=== PATIENT | female | born 1945 | race Caucasian/White ===

== ENCOUNTER 2017-10-08 21:30 | Emergency (ER) | payer MEDICARE ==
[~2017-10-08] VITALS: Ht 170.2 cm; Wt 83.9 kg
[~2017-10-08 21:30] MED LIST: ATEN25 PO; Dyazide 37.5-21 EACH PO; LISI20 PO
[2017-10-08] MEDS ORDERED: ALEN70 PO (22:08)
[2017-10-08] MEDS ORDERED: LOSA50 PO (22:08)
[2017-10-08] MEDS ORDERED: Simvastatin20 MG PO (22:08)
[2017-10-08 22:40] LABS: Influenza A Negative (NEGATIVE); Influenza B Negative (NEGATIVE)
[2017-10-08 23:06] LABS: BASOPHILS ABSOLUTE AUTO 0.06 K/mm3 (0.00-0.23); BASOPHILS PERCENT AUTO 1 % (0-2); EOSINOPHILS ABSOLUTE AUTO 0.19 K/mm3 (0.00-0.68); EOSINOPHILS PERCENT AUTO 3 % (0-6); Hematocrit 39.7 % (33.0-51.0); Hemoglobin 12.6 g/dL (11.5-16.0); IMMATURE GRAN ABSOLUTE AUTO 0.01 K/mm3 (0.00-0.10); IMMATURE GRAN PERCENT AUTO 0 % (0-1); LYMPHOCYTES ABSOLUTE AUTO 1.45 K/mm3 (0.84-5.20); LYMPHOCYTES PERCENT AUTO 20 % (21-46); MONOCYTES ABSOLUTE AUTO 0.81 K/mm3 (0.16-1.47); MONOCYTES PERCENT AUTO 11 % (4-13); Mean Corpuscular HGB 29.6 pg (26.0-34.0); Mean Corpuscular HGB Conc 31.7 g/dL (31.5-36.5); Mean Corpuscular Volume 93 fL (80-100); Mean Platelet Volume 8.9 fL (9.1-12.4); NEUTROPHILS ABSOLUTE AUTO 4.89 K/mm3 (1.96-9.15); NEUTROPHILS PERCENT AUTO 66 % (41-73); Platelet Count 237 K/mm3 (150-400); RDW Standard Deviation 41.2 fL (35.1-46.3); Red Blood Cell Count 4.25 M/mm3 (3.80-5.20); White Blood Cell Count 7.41 K/mm3 (4.00-11.30)
[2017-10-08 23:27] LABS: Albumin, Blood 3.6 g/dL (3.4-5.0); Albumin/Globulin Ratio 0.9 (0.8-1.8); Bilirubin, Total 0.5 mg/dL (0.1-1.0); Bun/Creatinine Ratio 13.5 (12.0-20.0); Calcium, Blood 8.8 mg/dL (8.5-10.1); Creatinine, Blood 1.33 mg/dL (0.40-1.00); Globulin, Blood 4.2 g/dL (2.2-4.0); Potassium, Blood 3.8 mmol/L (3.5-5.5); Total Protein, Blood 7.8 g/dL (6.4-8.2)
[2017-10-08] MEDS ORDERED: Tylenol325 MG PO (23:56)
== END 2017-10-09 00:43 | disposition home or self-care (01) ==
LOC: ER 21:30
PROVIDERS: Emergency Medicine
DX: R50.9 Fever, unspecified (principal); I10 Essential (primary) hypertension; Z90.710 Acquired absence of both cervix and uterus; Z90.49 Acquired absence of other specified parts of digestive tract; Z87.891 Personal history of nicotine dependence
CPT/HCPCS: 36415; 71046; 80053; 85025; 87804; 93005; 93010; 96361; 96374; 96375; 99284; J1200; J1885; J2765; J7030

== ENCOUNTER → 2019-01-01 | Outpatient (CLI) | payer MEDICARE ==
[~2019-01-01] MED LIST changes: +ALEN70 PO; +LOSA50 PO; +Simvastatin20 MG PO; +Tylenol325 MG PO
== END | disposition home or self-care (01) ==
LOC: LAB SHORT 14:40 → LAB 14:40
DX: R11.0 Nausea (principal); R30.0 Dysuria
CPT/HCPCS: 87086

== ENCOUNTER 2019-06-22 09:18 | Observation (INO) | payer MEDICARE ==
[~2019-06-22] VITALS: Ht 167.6 cm; Wt 87.1 kg
[2019-06-22] MEDS ORDERED: Aspirin EC81 MG PO (09:40)
[2019-06-22] MEDS ORDERED: VITAMIN D31000 UNI2 PO (09:41)
[2019-06-22 09:52] LABS: BASOPHILS ABSOLUTE AUTO 0.06 K/mm3 (0.00-0.23); BASOPHILS PERCENT AUTO 1 % (0-2); EOSINOPHILS ABSOLUTE AUTO 0.25 K/mm3 (0.00-0.68); EOSINOPHILS PERCENT AUTO 4 % (0-6); Hematocrit 40.4 % (33.0-51.0); Hemoglobin 13.1 g/dL (11.5-16.0); IMMATURE GRAN ABSOLUTE AUTO 0.02 K/mm3 (0.00-0.10); IMMATURE GRAN PERCENT AUTO 0 % (0-1); LYMPHOCYTES ABSOLUTE AUTO 1.65 K/mm3 (0.84-5.20); LYMPHOCYTES PERCENT AUTO 25 % (21-46); MONOCYTES ABSOLUTE AUTO 0.69 K/mm3 (0.16-1.47); MONOCYTES PERCENT AUTO 10 % (4-13); Mean Corpuscular HGB 30.5 pg (26.0-34.0); Mean Corpuscular HGB Conc 32.4 g/dL (31.5-36.5); Mean Corpuscular Volume 94 fL (80-100); Mean Platelet Volume 8.7 fL (9.1-12.4); NEUTROPHILS ABSOLUTE AUTO 3.94 K/mm3 (1.96-9.15); NEUTROPHILS PERCENT AUTO 60 % (41-73); Platelet Count 276 K/mm3 (150-400); RDW Coefficient Variation 12.5 % (11.7-14.2); RDW Standard Deviation 43.3 fL (35.1-46.3); Red Blood Cell Count 4.29 M/mm3 (3.80-5.20); White Blood Cell Count 6.61 K/mm3 (4.00-11.30)
[2019-06-22 09:59] LABS: Source, Urine Clean Catch
[2019-06-22 10:09] LABS: Appearance, Urine Clear (Clear); Bilirubin, Urine Neg (Neg); Blood, Urine Neg (Neg); Glucose Qualitative, Urine Neg (Neg); Ketones, Urine Neg (Neg); Leukocyte Esterase, Urine 1+ (Neg); Nitrite, Urine Neg (Neg); Protein, Urine Neg (Neg); Urobilinogen, Urine NORM (Normal); pH, Urine 6.5 (5.0-8.0)
[2019-06-22 10:10] LABS: Color, Urine Yellow (P-Yellow)
[2019-06-22 10:11] LABS: Alanine Aminotransfer (ALT/SGP 30 U/L (12-78); Albumin, Blood 3.6 g/dL (3.4-5.0); Albumin/Globulin Ratio 0.9 (0.8-1.8); Alk Phos 62 U/L (50-136); Anion Gap 7 mmol/L (6-16); Aspartate Aminotrans (AST/SGOT 24 U/L (12-37); Bilirubin, Total 0.8 mg/dL (0.1-1.0); Blood Urea Nitrogen 22 mg/dL (8-24); Bun/Creatinine Ratio 16.5 (12.0-20.0); CO2, Blood 24 mmol/L (21-32); Calcium, Blood 8.9 mg/dL (8.5-10.1); Chloride, Blood 107 mmol/L (98-108); Creatinine, Blood 1.33 mg/dL (0.40-1.00); Glomerular Filtration Rate 42 (60-); Glucose, Blood 104 mg/dL (70-99); Potassium, Blood 3.5 mmol/L (3.5-5.5); Sodium, Blood 138 mmol/L (136-145); Total Protein, Blood 7.6 g/dL (6.4-8.2); Troponin I <0.015 ng/mL (0.000-0.040)
[2019-06-22 10:16] LABS: Bacteria Not Seen /hpf; Red Blood Cells, Urine Not Seen /hpf (0-2); Squamous Epithelial Cells Few /hpf (Few); White Blood Cells, Urine Rare /hpf (0-5)
--- NOTE | 2019-06-22 12:58 | NUR ---
PT ARRIVED TO ROOM FROM ED VIA W/C. PT WAS ABLE TO WALK FROM W/C TO BED IND. PT IS A/O X 4 AND DENIES ANY PAIN OR DISCOMRT. SHE IS HAS NO S/S OF CARDIAC DISTRESS. PT WAS ORIENTED TO ROOM, CALL LIGHT AND NURSING STAFF. PT IS ABLE TO MAKE HER NEEDS KNOWN AND IS RESTING IN BED.
--- NOTE | 2019-06-22 17:38 | NUR ---
SHIFT SUMMARY: PT HAS BEEN PLEASANT AND COOPERATIVE WITH HER CARE AND RESTING IN BED/TALKING ON THE PHONE WITH FRIENDS AND FAMILY SINCE ADMISSION. PT IS SCHEDULED TO HAVE THE FIRST PART OF HER STRESS TEST IN THE MORNING BEFORE BREAKFAST PER NUCLEAR MEDICINE. PT SHOULD BE NPO AFTER MIDNIGHT TONIGHT TO PREP FOR THE TEST. PT IS INDEPENDENT IN HER ROOM. SHE HAS HAD NO LIGHTHEADEDNESS OR CHEST PAIN SINCE HER ARRIVAL. PT IS ABLE TO MAKE HER NEEDS KNOWN AND CALLS FOR HELP APPROPRIATELY.
--- NOTE | 2019-06-23 04:16 | NUR ---
SHIFT SUMMARY: 73 Y/O FEMALE RESTED COMFORTABLY IN BED ALL SHIFT, DENIES PAIN, NAUSEA, HAPPY AND COOPERATIVE, NPO SINCE MIDNIGHT FOR POSSIBLE STRESS TEST THIS AM, TELEMETRY REFLECTS SINUS BRADYCARDIA WITH HEART RATE 54 PER SHABANA KUMAR, BED LOW POSITION, CALL LIGHT AT SIDE.
--- NOTE | 2019-06-23 08:53 | NUR ---
PATIENT DID NOT EAT BREAKFAST THIS SHIFT DUE TO BEING NPO AT THIS TIME FOR A PROCEDURE.
--- NOTE | 2019-06-23 17:02 | NUR ---
SHIFT SUMMARY PATIENT A&O X4, INDEPENDENT IN ROOM. NPO THIS MORNING FOR STRESS TEST, DRANK COFFEE AND ATE MEAL AFTER NUC MED STAFF TOLD HER SHE COULD. ECHO AND STRESS TEST COMPLETED, DR BRAUN NOTIFIED AND CAME TO SPEAK TO PATIENT ABOUT RESULTS. DR BRAUN ORDERED CARDIOLOGY CONSULT, DR BUTCHER NOTIFIED OF PATIENT'S SITUATION, HE STATED HE WOULD SEE PATIENT. PATIENT DENIES PAIN, SOB, NAUSEA, OR FATIGUE TODAY. DAUGHTER IN ROOM MOST OF DAY. PT REQUESTING HOME SIMVASTATIN INSTEAD OF ORDERED LIPITOR BUT PHARMACY UNABLE TO VERIFY PT DOES NOT HAVE PRESCRIBED BOTTLE. DR BRAUN AWARE.
--- NOTE | 2019-06-24 04:20 | NUR ---
SHIFT SUMMARY PT HAD UNEVENTFUL EVENING. DENIED ANY CHEST PAIN OR DISCOMFORT. REPORTED ONE EPISODE OF NAUSEA BUT WAS ASLEEP WHEN GOING IN TO CHECK. TELEMETRY ON AND REMAINED SINUS RHYTHM IN THE 60'S THROUGHOUT THE NIGHT. PT HAS BEEN NPO SINCE 0000 IN PREPARATION FOR ANGIOGRAM TODAY. VITAL SIGNS STABLE. NO ACUTE CHANGES THIS SHIFT.
[2019-06-24] MEDS ORDERED: OMEPRAZOLE20 MG PO (17:24)
--- NOTE | 2019-06-24 18:26 | NUR ---
DISCHARGE HOME PT ALERT AND ORIENTED. SR. RIGHT RADIAL SITE CD&I. VSS. ZIO PATCH APPLIED TO LEFT CHEST [facility]. FOLLOW UP APPOINTMENT MADE FOR HER THROUGH MOST. IV REMOVED WITH CANNULA INTACT. PRESSURE DRESSING APPLIED. CONTINUE POT.
== END 2019-06-24 18:24 | disposition home or self-care (01) ==
LOC: ER 09:18 → MEDS 09:19 → PCU 06-24 12:59
PROVIDERS: Emergency Medicine; ADMIT Hospitalist
PROC: 4A023N7 Measurement of Cardiac Sampling and Pressure, Left Heart, Percutaneous Approach (ICD-10-PCS; principal; 2019-06-24)
PROC: B2111ZZ Fluoroscopy of Multiple Coronary Arteries using Low Osmolar Contrast (ICD-10-PCS; principal; 2019-06-24)
DX: R07.89 Other chest pain (principal); R00.2 Palpitations; I13.10 Hypertensive heart and chronic kidney disease without heart failure, with stage 1 through stage 4 chronic kidney disease, or unspecified chronic kidney disease; N18.3 Chronic kidney disease, stage 3 (moderate); I25.10 Atherosclerotic heart disease of native coronary artery without angina pectoris; E78.5 Hyperlipidemia, unspecified; M81.0 Age-related osteoporosis without current pathological fracture; I34.0 Nonrheumatic mitral (valve) insufficiency; Z68.31 Body mass index [BMI] 31.0-31.9, adult; E66.9 Obesity, unspecified; Z91.041 Radiographic dye allergy status; Z87.891 Personal history of nicotine dependence; Z90.49 Acquired absence of other specified parts of digestive tract; Z90.710 Acquired absence of both cervix and uterus; Z79.82 Long term (current) use of aspirin; Z79.899 Other long term (current) drug therapy
CPT/HCPCS: 36415; 71046; 78452; 80053; 81001; 84484; 85025; 93005; 93010; 93017; 93270; 93271; 93306; 93454; 96372; 99152; 99285-25; A9500; C1769; C1894; G0378; J1644; J1650; J2250; J2785; J3010; J7030; J7512; Q0163; Q9967

== ENCOUNTER → 2019-10-02 | Outpatient (CLI) | payer MEDICARE ==
[~2019-10-02] MED LIST changes: +Aspirin EC81 MG PO; +OMEPRAZOLE20 MG PO; +VITAMIN D31000 UNI2 PO
[2019-10-02 13:54] LABS: Bilirubin, Urine Neg (Neg); Blood, Urine Neg (Neg); Glucose Qualitative, Urine Neg (Neg); Ketones, Urine Neg (Neg); Leukocyte Esterase, Urine 1+ (Neg); Nitrite, Urine Neg (Neg); Protein, Urine Neg (Neg); Specific Gravity, Urine 1.015 (1.003-1.022); Urobilinogen, Urine NORM (Normal)
[2019-10-02 14:09] LABS: Appearance, Urine Clear (Clear); Bacteria Mod /hpf; Color, Urine Yellow (P-Yellow); Red Blood Cells, Urine Not Seen /hpf (0-2); Squamous Epithelial Cells Mod /hpf (Few)
== END | disposition home or self-care (01) ==
LOC: LAB SHORT 13:04 → LAB 13:04
PROVIDERS: Family Medicine
DX: R30.0 Dysuria (principal)
CPT/HCPCS: 81001; 87077; 87086; 87186

== ENCOUNTER 2019-10-14 08:33 | Day surgery (SDC) | payer MEDICARE ==
[~2019-10-14] VITALS: Ht 162.6 cm; Wt 85.1 kg
[2019-10-14] MEDS ORDERED: ALBU3IS (08:53)
[2019-10-14] MEDS ORDERED: CEPH500 (08:54)
== END 2019-10-14 11:00 | disposition home or self-care (01) ==
LOC: ORSCSDS 08:33
PROVIDERS: Student in an Organized Health Care Education/Training Program
PROC: 0DB58ZX Excision of Esophagus, Via Natural or Artificial Opening Endoscopic, Diagnostic (ICD-10-PCS; principal; 2019-10-14 10:00)
DX: K22.70 Barrett's esophagus without dysplasia (principal); R13.10 Dysphagia, unspecified; K21.9 Gastro-esophageal reflux disease without esophagitis; I10 Essential (primary) hypertension; I25.10 Atherosclerotic heart disease of native coronary artery without angina pectoris; K44.9 Diaphragmatic hernia without obstruction or gangrene; K22.2 Esophageal obstruction; Z79.899 Other long term (current) drug therapy
CPT/HCPCS: 88305; J2704; J7120

== ENCOUNTER → 2021-06-09 | Outpatient (CLI) | payer MEDICARE, OTHER ==
[~2021-06-09] MED LIST changes: +ALBU3IS; +CEPH500
[2021-06-09 13:24] LABS: Source, Urine Clean Catch
[2021-06-09 15:18] LABS: Appearance, Urine Clear (Clear); Bilirubin, Urine Neg (Neg); Blood, Urine Neg (Neg); Color, Urine Yellow (P-Yellow); Glucose Qualitative, Urine Neg (Neg); Ketones, Urine Neg (Neg); Leukocyte Esterase, Urine Neg (Neg); Nitrite, Urine Neg (Neg); Protein, Urine Neg (Neg); Urobilinogen, Urine NORM (Normal)
== END ==
LOC: LAB SHORT 13:17
PROVIDERS: Internal Medicine
DX: R39.9 Unspecified symptoms and signs involving the genitourinary system (principal)
CPT/HCPCS: 81003